=== PATIENT | male | born 1980 | race Caucasian/White ===

== ENCOUNTER 2024-01-08 05:45 | Day surgery (SDC) | payer OTHER ==
[2024-01-08 06:34] VITALS: RESP 18
[2024-01-08 07:09] LABS: ANION GAP 14.2 MEQ/L (5-15); Calcium 9.6 mg/dL (8.4-10.2); Creatinine 1 1.11 mg/dL (0.66-1.25); EST GLOMERULAR FILTRATION RATE 84.5 ML/MIN; Potassium 4.3 mmol/L (3.5-5.1)
[2024-01-08] MEDS ORDERED: DIPRIVAN 200 MG/20 ML IV ONE ×2 (08:03→08:13)
[2024-01-08 09:21] VITALS: BP 125/81; PULSE 71; TEMP 97; O2SAT 96
--- NOTE | 2024-01-09 07:57 | OP ---
SURGERY DATE/TIME: 01/08/2024 [id number] PREOPERATIVE DIAGNOSIS: Left lower quadrant abdominal pain and both parents with history of colon polyps. POSTOPERATIVE DIAGNOSIS: Diverticulosis and polyp in the sigmoid colon. PROCEDURE: Colonoscopy with hot snare biopsy and retrieval of polyp for pathologic evaluation. SURGEON: Piter Ojeda MD MEDICATION: Given by the anesthesia department. INDICATIONS: The patient is a 43-year-old white male patient presenting now for a colonoscopic evaluation. The patient was apprised of the risks of the procedure including the risk of perforation, phlebitis, untoward reaction to medication, bleeding, and missed lesions. The patient verbalized his understanding and desired to have the procedure performed. DESCRIPTION OF PROCEDURE AND FINDINGS: The patient was given medication by the anesthesia department. He had continuous pulse oximetry, ECG monitoring, and intermittent blood pressure monitoring during the examination. He was placed in left lateral decubitus position. Digital rectal examination was performed and revealed normal anal sphincter tone, no masses, normal prostate. The flexible Olympus videocolonoscope was used to intubate the rectum. A view of the colon was developed sequentially to the cecum. Upon insertion and withdrawal was noted diverticulosis through the colon but mostly on the left side. There was also noted a fairly sizable pedunculated polyp which was removed using the hot snare technique for removal and the polyp was successfully collected for pathologic evaluation. It is noted that we also used the cold forceps technique to biopsy the polyp beforehand to be sure we had evidence of the patient's underlying pathology. No other mucosal lesions being encountered, the scope was removed from the patient who tolerated the procedure well and was sent back to outpatient recovery in good condition. The prep was noted to be fair.
== END 2024-01-08 09:26 | disposition home or self-care (01) ==
LOC: SDC 05:45
PROVIDERS: ATTEND Family Medicine
DX: D12.5 Benign neoplasm of sigmoid colon (principal); R10.32 Left lower quadrant pain; Z83.719 Family history of colon polyps, unspecified; E11.9 Type 2 diabetes mellitus without complications; K57.30 Diverticulosis of large intestine without perforation or abscess without bleeding
CPT/HCPCS: 36415; 80048; 82947; 93005; J2704